=== PATIENT | female | born 1970 | race Caucasian/White ===

== ENCOUNTER → 2016-08-22 | Outpatient (CLI) | payer BC, OTHER ==
[~2016-08-22] MED LIST: BUPR-79 PO; IBUP-1050 PO; MTR600X PO; OXYC-57 PO; WHEAPOW13 PO
--- NOTE | 2016-08-22 15:46 | MAMMOGRAPHY REPORT ---
UNILATERAL LEFT DIGITAL DIAGNOSTIC MAMMOGRAM TOMOSYNTHESIS AND TARGETED LEFT ULTRASOUND: 08/22/2016 CLINICAL HISTORY: 46-year-old woman called back from screening mammography for a new 4 mm focal asym metry in the lower outer left breast. TECHNIQUE: Spot compression left CC and MLO 2-D digital and tomosynthesis images were obtained. COMPARISON: Comparison is made to exams dated: 08/15/2016 mammogram, 08/05/2015 mammogram, and 07/19 mammogram - [facility]. BREAST COMPOSITION: The tissue of the left breast is almost entirely fatty. FINDINGS: The spot compression views of the left breast demonstrate persistence of a 4.2 mm partial ly circumscribed and lobulated mass in the lower outer quadrant of the left breast.As stated archite ctural distortion or cluster macrocalcification. No other obvious mass is identified. Real-time high-resolution ultrasound was performed in the 3:00 through 6:00 axes of the left breast. In the 3:00 axis, 6 cm from the nipple, there is a lobulated predominantly anechoic cystic appeari ng mass with 1-2 thin internal nonvascular septations, measuring 3.2 x 2.2 x 2.3 mm. This is though t to correlate well with the mammographic mass and most likely represents a cyst. Given the interna l septations, a short interval follow-up targeted ultrasound and repeat mammography is recommended t o ensure stability in 6 months. IMPRESSION: ACR-BI-RADS CATEGORY 3: PROBABLY BENIGN, TARGETED ULTRASOUND ACR-BI-RADS CATEGORY 3: ME OBABLY BENIGN The new small 4 mm mass in the approximate 3:00 middle one third of the left breast is thought to co rrelate with a benign, mildly complicated cyst on ultrasound. Given a few internal nonvascular sept ations, a short interval follow-up is recommended to ensure stability in 6 months. These results and recommendations were discussed with the patient at the time of the exam. She tent atively scheduled a follow-up appointment prior to leaving our department. Approximately 10% of breast cancers are not detected with mammography. A negative mammographic repor t should not delay biopsy if a clinically suggestive mass is present. Sudha Burgess M.D. ay/:08/22/2016 14:50:27 Mortgage Loan Originator: Zoraida FORDE(Phillip)(Jossue), [facility] letter sent: Follow Up Recommended 3 BI-RADS Code: ACR-BI-RADS Category 3: Probably Benign Ultrasound BI-RADS: ACR-BI-RADS Category 3: P robably Benign
== END | disposition home or self-care (01) ==
LOC: C.MAMM 14:06
PROVIDERS: ATTEND Obstetrics & Gynecology
DX: N63 Unspecified lump in breast (principal)

== ENCOUNTER → 2016-12-07 | Outpatient (CLI) | payer BC, OTHER ==
[2016-12-07 09:59] LABS: CHOLESTEROL/HDL RATIO 3.3
[2016-12-07 10:10] LABS: ESTIMATED AVERAGE GLUCOSE 111 mg/dl; HA1C FLAG Normal (Normal)
[2016-12-07 11:16] LABS: CALCULATED INSULIN SENSITIVITY 0.298; INSULIN FASTING 22.2 mU/L (3-25); INSULIN LOG 1.3464
== END | disposition home or self-care (01) ==
LOC: C.LAB 09:09
PROVIDERS: ATTEND Internal Medicine Endocrinology, Diabetes & Metabolism
DX: R73.09 Other abnormal glucose (principal); M79.1 Myalgia

== ENCOUNTER → 2016-12-10 | Outpatient (CLI) | payer BC, OTHER ==
[~2016-12-10] VITALS: Ht 168.9 cm; Wt 117.4 kg
[2016-12-10 14:48] VITALS: BP 124/80; PULSE 88; Ht 168.9 cm; Wt 117.4 kg
== END | disposition home or self-care (01) ==
LOC: C.NEUR 14:15
PROVIDERS: ATTEND Physician Assistant
DX: G47.30 Sleep apnea, unspecified (principal)

== ENCOUNTER → 2017-02-20 | Outpatient (CLI) | payer BC, OTHER ==
[~2017-02-20] MED LIST changes: -BUPR-79 PO; -WHEAPOW13 PO
--- NOTE | 2017-02-20 12:32 | MAMMOGRAPHY REPORT ---
UNILATERAL LEFT DIGITAL DIAGNOSTIC MAMMOGRAM TOMOSYNTHESIS AND TARGETED LEFT ULTRASOUND: 02/20/2017 CLINICAL HISTORY: 6 Month Follow-up Left. TECHNIQUE: Breast tomosynthesis in addition to standard 2D mammography was performed. Left CC and M LO 2-D and tomosynthesis images were obtained. COMPARISON: Comparison is made to exams dated: 08/22/2016 ultrasound, 08/22/2016 mammogram, 08/15/2016 m ammogram, 08/05/2015 mammogram, and 08/03/2014 mammogram - [facility]. BREAST COMPOSITION: The tissue of the left breast is almost entirely fatty. FINDINGS: Again noted is an oval circumscribed benign-appearing 4 mm mass within the left lower oute r quadrant. The mass is stable mammographically compared to the July 2016 exam. The remainder o f the left breast is stable mammographically compared to prior exams, without suspicious masses, calc ifications, or areas of architectural distortion noted. Targeted ultrasound was performed of the area of the previously seen mammographic mass. In the left breast at 4:00, 6 cm from the nipple (previously labeled 3:00), there is an oval circumscribed parall el anechoic mass with a thin internal septation, measuring 2 x 2 x 3 mm. This is stable compared to the August 2016 exam. The mass corresponds with the stable mammographic mass and is consistent with a benign cyst. IMPRESSION: ACR BI-RADS CATEGORY 2: BENIGN, TARGETED ULTRASOUND ACR BI-RADS CATEGORY 2: BENIGN Circumscribed benign-appearing 3 mm mass in the left breast at 4:00 is stable sonographically and debbie mographically compared to the July 2016 exam, and is consistent with a benign cyst. There is no m ammographic or targeted sonographic evidence of malignancy. Return to annual mammogram screening marc francis is recommended, due July 2017. The patient has been verbally notified of the results. Approximately 10% of breast cancers are not detected with mammography. A negative mammographic report should not delay biopsy if a clinically suggestive mass is present. Sakina Olvera M.D. /:02/20/2017 08:39:58 [employer]: Aline Anne RT(R)(M), [facility] letter sent: Normal 1/2 BI-RADS Code: ACR BI-RADS Category 2: Benign Ultrasound BI-RADS: ACR BI-RADS Category 2: Benign
== END | disposition home or self-care (01) ==
LOC: C.MAMM 08:13
PROVIDERS: ATTEND Obstetrics & Gynecology
DX: Z09 Encounter for follow-up examination after completed treatment for conditions other than malignant neoplasm (principal); N63 Unspecified lump in breast

== ENCOUNTER → 2017-05-13 | Outpatient (CLI) | payer BC ==
[~2017-05-13] MED LIST changes: +OPTIRAY 320 IV PRN
--- NOTE | 2017-05-13 13:54 | DIAGNOSTIC IMAGING REPORT ---
ABD/PELVIS IV AND ORAL CONT CT DOSE: 1550.94 mGy.cm HISTORY: Right flank pain R10.31 Right lower quadrant abdominal [id number] TECHNIQUE: Multiaxial CT images of the abdomen and pelvis were performed following the use of intravenous and oral contrast. A dose lowering technique was utilized adhering to the principles of ALARA. COMPARISON STUDY: None. FINDINGS: Liver spleen and pancreas are unremarkable. Kidneys negative for hydronephrosis or obstructive change. 1 cm upper pole right renal cyst. The adrenal glands are unremarkable. Findings of wall edematous change involving the cecum and majority of the a sending colon. The appendix is considered normal. Slight wall thickening of the final 5 cm of the terminal ileum. Diagnostic considerations include inflammatory bowel process, colitis with backwash ileitis, versus an atypical presentation of cecal diverticulitis. No evidence for abscess or collection. Findings of chronic sigmoid diverticulosis. No evidence for acute sigmoid diverticulitis. No free fluid within the pelvic cul-de-sac. Bladder is midline. IMPRESSION: 1. Wall thickening circumferentially of the cecum and 50% of the length of the a sending colon. 2. Moderate wall edema of the final 5 cm of the terminal ileum. 3. Diagnostic considerations include nonspecific colitis, cecal diverticulitis, versus the less likely possibility of inflammatory bowel process. 4. No evidence for abscess collection or obstruction. 5. Normal appendix. 6. Chronic sigmoid diverticulosis. The above report was generated using voice recognition software. It may contain grammatical, syntax or spelling errors. Electronically signed by: Michael Aburto M.D. 05/13/2017 1:53 PM Dictated Date/Time: 05/13/2017 1:47 PM
== END | disposition home or self-care (01) ==
LOC: C.CTS 11:10
PROVIDERS: ATTEND Physician Assistant Medical
DX: R10.31 Right lower quadrant pain (principal); K63.89 Other specified diseases of intestine; R60.0 Localized edema; K57.30 Diverticulosis of large intestine without perforation or abscess without bleeding

== ENCOUNTER → 2017-05-16 | Outpatient (CLI) | payer BC ==
[~2017-05-16] MED LIST changes: -OPTIRAY 320 IV PRN
[2017-05-16 17:25] LABS: BASO % 0.4 %; BASO ABS # 0.04 K/uL (0-0.2); COMPLETE YES; HEMATOCRIT 41.3 % (37-47); IG% 0.3 %; LYMPH % 19.5 %; LYMPH ABS # 1.96 K/uL (1.2-3.4); MEAN CELL VOLUME 89.6 fL (80-100); MEAN CORPUSCULAR HEMOGLOBIN 29.7 pg (25-34); MEAN CORPUSCULAR HGB CONC 33.2 g/dl (32-36); MEAN PLATELET VOLUME 9.1 fL (7.4-10.4); MONO % 7.7 %; NEUT % 70.1 %; PLATELET COUNT 304 K/uL (130-400); RED BLOOD COUNT 4.61 M/uL (4.2-5.4); WHITE BLOOD COUNT 10.06 K/uL (4.8-10.8)
== END | disposition home or self-care (01) ==
LOC: C.LABBFT 11:59
PROVIDERS: ATTEND Physician Assistant Medical
DX: R74.8 Abnormal levels of other serum enzymes (principal); K52.9 Noninfective gastroenteritis and colitis, unspecified

== ENCOUNTER → 2017-08-16 | Outpatient (CLI) | payer BC ==
[~2017-08-16] MED LIST changes: +BUPR-79 PO; -IBUP-1050 PO; -MTR600X PO; -OXYC-57 PO; +WHEAPOW13 PO
--- NOTE | 2017-08-20 13:36 | MAMMOGRAPHY REPORT ---
BILATERAL DIGITAL SCREENING MAMMOGRAM TOMOSYNTHESIS WITH CAD: 08/16/2017 CLINICAL HISTORY: Routine screening. Patient has no complaints. TECHNIQUE: Breast tomosynthesis in addition to standard 2D mammography was performed. Current study was also evaluated with a Computer Aided Detection (CAD) system. COMPARISON: Comparison is made to exams dated: 02/20/2017 ultrasound, 02/20/2017 mammogram, 08/22/2016 ult rasound, 08/22/2016 mammogram, 08/15/2016 mammogram, and 08/05/2015 mammogram - [facility]. BREAST COMPOSITION: The tissue of both breasts is almost entirely fatty. FINDINGS: No suspicious masses, calcifications, or areas of architectural distortion are noted in ei ther breast. There has been no significant interval change compared to prior exams. A few small circ umscribed benign-appearing masses are again noted bilaterally. Scattered benign-appearing right [address] st calcifications are stable. IMPRESSION: ACR BI-RADS CATEGORY 2: BENIGN There is no mammographic evidence of malignancy. A 1 year screening mammogram is recommended. The pa tient will receive written notification of the results. Approximately 10% of breast cancers are not detected with mammography. A negative mammographic report should not delay biopsy if a clinically suggestive mass is present. Sakina Olvera M.D. /:08/16/2017 12:44:38 Home Improvement Advisor: Aline Mcfarlane, [facility] letter sent: Normal 1/2 BI-RADS Code: ACR BI-RADS Category 2: Benign
== END | disposition home or self-care (01) ==
LOC: C.MAMM 09:59
PROVIDERS: ATTEND Internal Medicine
DX: Z12.31 Encounter for screening mammogram for malignant neoplasm of breast (principal)